=== PATIENT | female | born 1980 | race Caucasian/White ===

== ENCOUNTER 2017-09-05 07:28 | Inpatient (IN) | payer BC ==
[~2017-09-05] VITALS: Ht 170.2 cm; Wt 91.0 kg
[2017-09-05] VITALS (25 sets, daily range): BP systolic 130–184; BP diastolic 55–84
[~2017-09-05 07:28] MED LIST: MOTRIN800 MG PO; Motrin PO; NOHOMEMEDS; PERCOCET 5/31 TABLET PO
[2017-09-05] MEDS ORDERED: PRENATAL TABLE1 EAC3 PO (08:20)
[2017-09-05] MEDS ORDERED: IRON18 MG PO (08:20)
[2017-09-05 08:30] LABS: EOSINOPHIL COUNT 0.1 K/uL (0-0.3); HEMATOCRIT 32.9 % (36.0-46.0); IMMATURE GRANULOCYTE (%) 0.9 % (0.0-0.7); IMMATURE GRANULOCYTE COUNT 0.1 K/uL; INSTRUMENT ABS NEUTROPHIL CT 7.5 K/uL; LYMPHOCYTE COUNT 1.4 K/uL (1.0-2.8); MCH 30.9 PG (29.0-34.0); MCV 90.6 FL (83-99); MEAN PLAT.VOLUME 11.5 uM^3 (9.5-12.4); MONOCYTE (%) 5.7 % (3-12); MONOCYTE COUNT 0.6 K/uL (0-0.8); NEUTROPHIL (%) 77.8 % (45-76); NEUTROPHIL COUNT 7.5 K/uL (1.8-6.4); PLATELET COUNT 203 K/uL (156-360); RBC DIS.WIDTH-CV 17.5 % (11.8-14.6); RED BLOOD COUNT 3.63 M/uL (3.80-5.20); WHITE BLOOD COUNT 9.7 K/uL (4.1-10.2)
[2017-09-05] MEDS ORDERED: IBUPROFEN800 MG PO (14:59)
[2017-09-06 04:05] VITALS: BP 137/68
[2017-09-06 11:04] VITALS: BP 165/77
[2017-09-06 14:30] VITALS: BP 167/77
[2017-09-06 19:45] VITALS: BP 157/76
[2017-09-06 21:00] VITALS: BP 157/80
[2017-09-06 23:15] VITALS: BP 149/71
[2017-09-07 11:32] VITALS: BP 188/91
[2017-09-07] MEDS ORDERED: PROCARDIA XL30 MG PO (11:36)
[2017-09-07 12:45] VITALS: BP 166/88
[2017-09-07 13:55] VITALS: BP 160/78
[2017-09-07 15:10] VITALS: BP 142/80
== END 2017-09-07 16:05 | disposition home or self-care (01) | DRG 775 ==
LOC: LDRP-OP 07:28 → 2WEST 07:29 → LDRP-OP 13:41 → 2WEST 14:33 → LDRP-OP 10-18 13:05
PROVIDERS: Advanced Practice Midwife
PROC: 10E0XZZ Delivery of Products of Conception, External Approach (ICD-10-PCS; principal; 2017-09-05)
PROC: 0HQ9XZZ Repair Perineum Skin, External Approach (ICD-10-PCS; principal; 2017-09-05)
PROC: 3E0S3BZ Introduction of Anesthetic Agent into Epidural Space, Percutaneous Approach (ICD-10-PCS; principal; 2017-09-05)
PROC: 3E033VJ Introduction of Other Hormone into Peripheral Vein, Percutaneous Approach (ICD-10-PCS; principal; 2017-09-05)
PROC: 10907ZC Drainage of Amniotic Fluid, Therapeutic from Products of Conception, Via Natural or Artificial Opening (ICD-10-PCS; principal; 2017-09-05)
PROC: 00HU33Z Insertion of Infusion Device into Spinal Canal, Percutaneous Approach (ICD-10-PCS; principal; 2017-09-05)
DX: O70.0 First degree perineal laceration during delivery (principal); O13.4 Gestational [pregnancy-induced] hypertension without significant proteinuria, complicating childbirth; O99.824 Streptococcus B carrier state complicating childbirth; Z37.0 Single live birth; Z3A.38 38 weeks gestation of pregnancy; D50.9 Iron deficiency anemia, unspecified; O99.02 Anemia complicating childbirth
CPT/HCPCS: 85025; C1755; J2540; J3010; J7120